=== PATIENT | female | born 2005 | race Caucasian/White ===

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

== ENCOUNTER 2023-07-30 16:37 | Outpatient (CLI) | payer BC, SELFPAY ==
[2023-07-30 16:45] VITALS: BP 153/77; PULSE 103; RESP 19; O2SAT 95
== END 2023-07-30 17:00 | disposition home or self-care (01) ==
LOC: INF 16:39
PROVIDERS: Visit Provider Physician Assistant
DX: R07.81 Pleurodynia (principal)
CPT/HCPCS: 96372

== ENCOUNTER 2024-03-07 15:10 | Outpatient (CLI) | payer BC, SELFPAY ==
[2024-03-07 15:32] VITALS: BMI 28.3
[2024-03-07 15:45] LABS: Basophils % 0.5 % (0.1-2.0); Eosinophils # 0.2 K/mm3 (0.0-0.4); Hematocrit 39.8 % (37.0-47.0); Lymphocytes # 0.4 K/mm3 (0.7-4.5); Lymphocytes % 10.6 % (10-50); Mean Corpuscular HGB Conc 32.7 g/dL (31.8-35.4); Mean Corpuscular Hemoglobin 30.1 pg (27.0-31.2); Mean Corpuscular Volume 92.1 fl (81-99); Mean Platelet Volume 7.4 fl (7.4-10.4); Monocytes # 0.3 K/mm3 (0.1-1.0); Monocytes % 6.6 % (1.7-9.3); Neutrophils # 3.2 K/mm3 (1.8-7.8); Neutrophils % 78.3 % (37.0-80.0); Platelet Count 319 K/mm3 (142-424); Red Blood Count 4.31 M/mm3 (4.20-5.40); Red Cell Distribution Width 14.1 % (11.5-17.5); White Blood Count 4.1 K/mm3 (4.5-13.0)
[2024-03-07 15:48] LABS: Urine Pregnancy, HCG Qual. Negative (Negative)
[2024-03-07] MEDS: cefTRIAXone 500MG VIAL 500 MG IM (15:50)
[2024-03-07 16:00] LABS: Albumin Level 4.3 g/dl (3.5-5.0); Albumin/Globulin Ratio 1.5 (1.1-1.8); Blood Urea Nitrogen 7 mg/dl (7-17); Chloride 104 mmol/L (98-107); Creatinine Clearance Estimated 120 mL/min (50-200); Estimated Glomerular Filt Rate 91 ml/min (>60); GFR (African American) 111 ML/MIN (>60); Globulin 2.8 g/dL (1.3-3.2); Potassium 3.9 mmoL/L (3.5-5.1); Sodium 140 mmol/L (136-145); Total Protein,Serum 7.1 g/dl (6.3-8.2)
[2024-03-07 16:01] LABS: Glucose 81 mg/dl (74-100)
[2024-03-07 16:02] LABS: Alanine Aminotransferase 24 U/L (12-78); Alkaline Phosphatase 67 U/L (38-126); Anion Gap 14.9 mEq/L (5-15); Aspartate Amino Transferase 33 U/L (14-36); Bilirubin,Total 0.4 mg/dl (0.2-1.3); Calcium 8.9 mg/dl (8.4-10.2); Carbon Dioxide 25 mmol/L (22.0-30.0)
--- NOTE | 2024-03-07 16:14 | XR_ITS ---
PROCEDURE INFORMATION: Exam: XR Abdomen Exam date and time: 03/07/2024 4:18 PM Age: 18 years old Clinical indication: Abdominal pain; Additional info: Lower abd pain; Back pain; Acute febrile illness TECHNIQUE: Imaging protocol: Radiologic exam of the abdomen. Views: Frontal supine view of the abdomen. 1 View. COMPARISON: CT ABDOMEN PELVIS WO CON 03/01/2020 9:15 PM FINDINGS: Gastrointestinal tract: Moderate colonic stool. No bowel dilation. Bones/joints: Unremarkable. IMPRESSION: No acute findings.
== END 2024-03-07 16:06 | disposition home or self-care (01) ==
LOC: INF 15:15
PROVIDERS: PCP Internal Medicine Adolescent Medicine; Visit Provider Nurse Practitioner Family
DX: R10.30 Lower abdominal pain, unspecified (principal); M54.9 Dorsalgia, unspecified; R50.9 Fever, unspecified; Z79.2 Long term (current) use of antibiotics
CPT/HCPCS: 36415; 74018; 80053; 81025; 85025; 87086; 96372; J0696

== ENCOUNTER 2025-07-04 09:09 | Outpatient (CLI) | payer BC, SELFPAY ==
--- OUTSIDE RECORDS SUMMARY | 2025-07-04 09:27 | XMS_ITS | Clinical Summary ---
Author Organization [facility] Address [address] [place] [address] Care Team Providers Care [employer] Dealer Name Role Phone Israel Bach MD Primary Care Provider + [phone] Allergies No known active allergies Medications PARoxetine (Paxil) 20 MG tablet 09/10/2023 Active norethindrone (Aygestin) 5 MG tabletIndication s:Dysfunctional uterine bleeding TAKE 1 TABLET BY MOUTH ONCE DAILY 90 tablet 3 05/04/2024 Active Active Problems Problem Noted Date Diagnosed Date Acute vaginitis 07/10/2023 Assessment & Plan (07/10/2023 11:30 AM EDT): - bacterial vaginosis on slides today. Discussed likely changes in vaginal PH from surgery - flagyl and diflucan RX sent - instructed to call if symptoms not improved in 2 weeks Elevated blood pressure read ing without diagnosis of hypertension 11/06/2022 Assessment & Plan (11/06/2022 9:35 AM EST): - normal BP in office today - log shows that she has had multiple elevated readings - discussed to stop control for 1 month. Continue log of blood pressure. Her mother is a nurse - discussed using a manual cuff or one besides a wrist cuff as it is not as accurate. - we discussed that we could try a lower dose of estrogen and we also discussed different progesterone only options to help manage heavy periods. - RTC 1 month to eval blood pressures Dysfunctional uterine bleeding 08/06/2022 Assessment & Plan (04/29/2023 4:42 PM EDT): -normal post-operative visit -discussed progesterone, aygestin, minipill, depo-provera, nexplanon, IUD - discussed R/B of each -interested in Aygestin - Rx sent -Explained this is a Progesterone only pill, not a contraceptive -RTC 3 months Assessment & Plan (12/08/2022 5:47 PM EDT): - hold OCPs until CT scan is complete - DUB labs today Assessment & Plan (08/06/2022 10:10 AM EST): - we discussed HPA immatury with anovulation is likely cause of heavy periods. We also discussed endocrine disorders or structural issues with uterus. No history or family history of bleeding disorders. - has not had recent lab work - HbA1c, TSH, and CBC today - discussed if anemic will start Iron BID - will try OCP with higher estrogen dose - Sprintec Rx sent - discussed possible ultrasound if periods do not improve - RTC 3 months for symptom evalulation Anxiety, generalized 05/23/2019 Resolved Problems Problem Noted Date Diagnosed Date Resolved Date Postoperative follow-up 04/29/202306/22 Pelvic and perineal pain 11/06/2022 Assessment & Plan (03/25/2023 10:35 AM EDT): - normal CT scan - has not improved with OCPs - consented for diagnostic laparoscopy, possible fulguration of endometriosis, hysteroscopy, dilation and curettage on 03/31/23 for heavy periods and pelvic pain - questions answered - RTC 4 weeks post-op visit Assessment & Plan (12/08/2022 5:48 PM EDT): - TVUS was ordered but WAS NOT performed. Unable to perform TVUS due to significant discomfort with exam - pelvic exam performed revealed normal vaginal anatomy - will order CT scan to eval structural abnormalities - we also discussed possible diagnosis of endometriosis and that only was to diagnose is with surgery. We did discuss that treatment is with management of hormones and that surgery is not needed to treat the condition. - continue to hold OCPs until CT scan is completed Assessment & Plan (11/06/2022 9:33 AM EST): - we discussed since cramping and pain with periods hasn't improved, that an ultrasound could be beneficial to see if there is a structural component to pain - we discussed that it will be transvaginal - RTC for US Immunizations Immunization Administration Dates Next Due DTaP 02/25/2008, 5,03/28/2004,01/08,2003 Hep A, ped/adol, 2 dose 07/06/2018,01/01/2018 Hep B, Adolescent or Pediatric 2003 Hib (PRP-OMP) 01/09/2004 Hib / Hep B 08/20/2004,2003 IPV 02/25/2008, 4,01/09/2004,10/26 Influenza, injectable, quadrivalent 07/06/2018 Influenza, injectable, quadr ivalent, preservative free 06/30/2019 MMR 02/25/2008,11/19/2004 Meningococcal B, Omv 09/10/2020 Meningococcal MCV4P 09/10/2020,04/17/2015 Pneumococcal Conjugate PCV 13 02/12/2005 Pneumococcal conjugate vacci ne, 10 valent 07/16/2004,03/28/2004 Tdap 04/17/2015 Varicella 04/17/2015,11/19/2004 Family History Medical History Relation Name Comments Conversions - Other Father Tobacco use Anxiety and depression Mother Conversions - Other Mother Nasal co ngestion Hypertension Mother Anxiety and depression Other 1 Anxiety and depression Other 2 Asthma Sibling Relation Name Status Comments Father Mother Other 1 Other 2 Sibling Social History Tobacco Use Types Packs/Day Years Used Date Smoking Tobacco: Never Passive Smoke Exposure: Yes Smokeless Tobacco: Never Tobacco Cessation:Counseling Given: Not Answered Comments:Secondhand exposure to electronic cigarette smoke Alcohol Use Standard Drinks/Week Comments Never 0 (1 standard drink = 0.6 oz pur e alcohol) PHQ-2 Answer Date Recorded Patient Health Questionnaire-2 Score 0 10/21/2023 PHQ-2A Answer Date Recorded Patient Health Questionnaire-2 Score 0 07/10/2023 Comments No Sex and Gender Information Value Date Recorded Sex Assigned at Not on file Legal Sex Female 8:23 PM EDT Gender Identity Not on file Sexual Orientation Not on file Last Filed Vital Signs Vital Sign Reading Time Taken Comments Blood Pressure 129/76 10/22/2023 12:48 PM EST Pulse 95 10/22/2023 12:48 PM EST Temperature 36.7 C (98.1 F) 10/22/2023 12:48 PM EST Respiratory Rate 16 10/22/2023 12:48 PM EST Oxygen Saturation 97% 10/22/2023 12:48 PM EST Inhaled Oxygen Concentration - - Weight 68.7 kg (151 lb 7.3 oz) 10/22/2023 12:48 PM EST Height 154.9 cm (5' 1 ) 10/22/2023 12:48 PM EST Body Mass Index 28.62 10/22/2023 12:48 PM EST Plan of Treatment Health Maintenance Due Date Last Done Comments [facility]-HIV Screening 2003 [facility]-/Child/Adol SDOH Screenings 2003 HPV Vaccines (1 - 3-dose series) 2018 [facility]- SDOH Screenings 2021 [facility]-Adult SDOH Screenings 2021 [facility]-Pap Smear 2024 [facility]-Depression Screening 10/21/2024 10/21/2023 [facility]-DTaP,Tdap,and Td Vaccines (7 - Td or Tdap) 04/17/2025 04/17/2015, 02/25/2008, 11/19/2004, Additional history exists [facility]-EERQB-32 Vaccine (3 - season) 2025 06/11/2021, 05/16/2021 [facility]-Influenza Vaccine (#1) 2025 06/30/2019, [facility]-Zoster Vaccines (1 of 2) 2053 04/17/2015, 11/19/2004 [facility]-HIB Vaccines Completed 08/20/2004, , 2003 [facility]-Hepatitis B Vaccines Completed 004, 2003, 2003 [facility]-Pneumococcal Vaccine: Pediatrics (0 to 5 Years) and At-Risk Patients (6 to 49 Years) Aged Out 02/12/2005, 02/12/2005 No longer eligibl e based on patient's age to complete this topic [facility]-IPV Vaccines Completed 02/25/2008, 04/2004, 01/09/2004, Additional history exists [facility]-Varicella Vaccines Completed 04/17/2015, 2004 [facility]-Hepatitis A Vaccines Completed 07/06/2018, 12/20 [facility]-Hepatitis C Screening Completed 09/23/2023 [facility]-Obesity Intervention Completed 024, 10/21/2023, 09/23/2023, Additional history exists [facility]-Rotavirus Vaccines Aged Out No lo nger eligible based on patient's age to complete this topic Procedures Procedure Name Priority Date/Time Associated Diagnosis Comments ACUTE HEPATITIS PANEL Routine 09/23/2023 3:12 PM EST Other chest pain Hypertension, unspecified type Elevated C-reactive protein (CRP) from Last 3 Months or Most Recently Relevant to Health Maintenance Results * Hepatitis panel, acute (09/23/2023 3:12 PM EST) Hepatitis B Surf Antigen Negative Negative 09/23/2023 6:31 PM EST [facility] Hepatitis C Antibody Negative Negative 09/23/2023 6:31 PM EST [facility] Hepatitis A Antibody IgM Negative Negative 09/23/2023 6:31 PM EST [facility] Hepatitis B Core Antibody IgM Negative Negative 09/23/2023 6:31 PM EST [facility] Blood Venous blood specimen / Unknown Venipuncture / Unknown 09/23/2023 3:12 PM EST 09/23/2023 3:13 PM EST us Seven Buitrago MD LAB BLOOD ORDERABLES Final Re sult [facility] [address] [place] [address] from Last 3 Months or Most Recently Relevant to Health Maintenance Insurance [facility] [address] [place] [id number] ANTHEM Care Teams [employer] Relationship Specialty Start Date End Date Israel Bach MD [address] [place] [id number] PCP - General 02/01/21
--- OUTSIDE RECORDS SUMMARY | 2025-07-04 09:27 | XMS_ITS | Patient Health Record ---
Author Organization [facility] [place] [facility] Address [address] [facility] [address] [place] [address] Care Team Providers Care Reeler Operator Name Role Phone Lourdes Wiggins Unavailable [phone] Allergies No Known Allergies Results Component Value Reference Range Flag Notes Dinora/Bacterial Vaginosis/ Trichomonas, JOSE ANTONIO (Aptima) Reviewed date:03/23/2025 03:05:41 PM Interpretation:Negative Performing Lab:[facility] AUREA CLIA ID [id number], [address], [address], [place] [address], Director - Hugo Akhtar MD Notes/Report: Bacterial Vaginosis Negative Negative The Aptima BV assay is a real time NAAT TMA assay developed for use on the automated Arch Cape system that detects and discriminates RNA markers from the Lactobacillus species group (L. gasseri, L. crispatus and L. jensenii), Gardnerella vaginalis, and Atopobium vaginae. The Aptima BV assay uses an algorithm for bacterial vaginosis based on detection of target organisms. Dinora species Negative Negative The CV Assay is a real time TMA assay developed for use on the automated Arch Cape system that detects following Dinora species organisms (C. albicans, C. tropicalis, C. parapsilosis, C. dubliniensis), but the assay does not differentiate among C spp. Dinora glabrata Negative Negative Trichomonas Negative Negative Pap w/reflex HPV/CTNG Reviewed date:03/23/2025 03:05:41 PM Interpretation:NILM HPV neg Performing Lab:[facility] - [facility]A CLIA ID [id number], [address], [address], [place] [address], Director - Hugo Akhtar MD Notes/Report: Any Nucleic Acid Amplification testing is performed on the PharmAssistant Arch Cape. Diagnosis: Negative for intraepithelial lesion or malignancy. AP results FINAL BISCUIT PACKER CYTOLOGY REPORT DIAGNOSIS: Negative for intraepithelial lesion or malignancy. Specimen Adequacy: Satisfactory for interpretation with endocervical/transform ation zone component present. Pertinent Clinical History/History of Surgery: Not provided Collection Technique: Not provided Results of Last Pap: Not provided LMP: NA Date of Last Pap: Not provided Screening note: This specimen has been analyzed by the Webtab Imaging System, an interactive computer system which assists the lab in screening of ThinPrep Pap Test slides. Following imaging, the slide was reviewed by a Property Portfolio Officer and/or Pathologist. Negative Educational Note: The pap screening test aids in the detection of premalignant and malignant states of the cervix. False positive and negative results may occur. It is not a diagnostic test. If abnormal cells are reported, follow-up based on current clinical guidelines and/or clinical consideration is recommended. Estella Mojica Property Portfolio Officer CPT Codes: 77610 ICD Codes: Z01.419 Specimen Source: Cervical/Endocervical Specimen Type: ThinPrep Other Gynecological Patient Information: Not provided Recommendation: Follow-up based on current clinical guidelines and/or clinical consideration. Chlamydia Trachomatis Negative Negative Neisseria Gonorrhoeae Negative Negative Mycoplasma/Ureaplasma Panel, PCR (Aptima) Reviewed date:03/30/2025 09:05:08 AM Interpretation:Negative Performing Lab: Notes/Report: [facility] Testing performed at: [BN] [address], [address], , Plaster Mixer: Alyssa Portillo MD Test(s) 046856-Mkxfokeeup hominis JOSE ANTONIO; 668469- Ureaplasma spp JOSE ANTONIO was developed and its performance characteristics determined by [facility]. It has not been cleared or approved by the Food and Drug Administration. Mycoplasma genitalium JOSE ANTONIO Negative Negative N Mycoplasma hominis JOSE ANTONIO Negative Negative N Ureaplasma spp JOSE ANTONIO Negative Negative N Reason For Referral No Information Medications Medication SIG (Take, Route, Frequency, Duration) Notes Start Date End Date Status Norethindrone Active Social History Social History Sexual History: Social Info Question Answer Notes Sexual History Had sex in the past 12 months (vaginal, oral, or anal)? Yes Drugs/Alcohol: Social Info Question Answer Notes Drugs Have you used drugs other than those for medical reasons in the past 12 months? No Alcohol Screen Did you have a drink containing alcohol in the past year? Yes Points 0 Interpretation Negative Tobacco Use: Social Info Question Answer Notes Tobacco Use/Smoking Are you a former smoker Tobacco use other than smoking: Are you an other tobac co user? No Problems Problem Type SNOMED Code ICD Code Onset Dates Problem Status W/U Status Risk Notes Problem Irregular menstruation (36754941) Irregular menstruation, unspecified (N92.6) Active confirmed Vital Signs Blood pressure diastolic 68 mm Hg 03/21/2025 Height 61 in 03/21/2025 Blood pressure systolic 114 mm Hg 03/21/2025 Weight 150.0 lbs 03/21/2025 BMI 28.34 kg/m2 03/21/2025 Encounters Encounter Location Date Provider Diagnosis [facility] [address] [place] [address] 04/03/2025 Lourdes Rosalie [facility] [address] [place] [address] 06/07/2025 Lourdes Wiggins [facility] [address] [facility] [facility] [address] [place] [address] 03/21/2025 Lourdes Wiggins Nail Cutter exam without abnormal findings Z01.419 ; Acute vaginitis N76.0 ; Irregular menstruation, unspecified N92.6 and BISCUIT PACKER exam without Abnormal Findings Z01.419 Assessments Encounter Date Diagnosis (ICD Code) Assessment Notes Treatment Notes Treatment Clinical Notes Section Notes 03/21/2025 Nail Cutter exam without abnormal findings (ICD-10 - Z01.419) Annual Well Woman's Examination -Physical exam performed and no abnormalities noted. -Pap smear collected. Will follow up with results and proceed per ASCCP guidelines. Discomfort with exam. Advised use peds speculums in future for testing -Contraception: Norethindrone -Encouraged a healthy lifestyle for our patients. Avoid the use of tobacco and drugs. Limit the use of alcohol. Take a multivitamin daily that contains 400mcg folic acid, 400-500mg calcium, and 800 units vitamin D. Exercise regularly (4 or more times per week for 30 mins. or more each time), eat a healthy diet, and maintain a healthy weight. Perform monthly breast self exams -Advised to continue care with PCP -Follow up in one year for annual exam or prior if needed 03/21/2025 Acute vaginitis (ICD-10 - N76.0) - Persistent abnormal vaginal discharge with foul odor and recurrence after standard treatment. - History of BV diagnosed months ago, treated with metronidazole and antifungal prophylaxis. - Symptoms resolve during treatment but recur immediately after. No urinary symptoms or lesions reported. - Performed assessment for vaginal infections to evaluate for recurrence or resistant organisms. - Will contact with results and tx as indicated 03/21/2025 Irregular menstruation, unspecified (ICD-10 - N92.6) - Recent onset of irregular periods, breakthrough bleeding, and clots after two years of amenorrhea. - History of endometrial hyperplasia and prior D&C. Will request records - Cramping episodes of variable severity over the past three months. Continuous hormonal therapy in use, skipping inactive pills. - Discussed hormonal management strategies, including periodic withdrawal to reduce breakthrough bleeding. - Recommended withdraw bleeding every 3 months to prevent random breakthrough 03/21/2025 BISCUIT PACKER exam without Abnormal Findings (ICD-10 - Z01.419) Routine gynecological screening performed, including Pap smear and breast exam. No prior Pap smear. No history of sexual activity. Patient expressed hesitancy but agreed to proceed. - Performed Pap smear for cervical cancer screening. - Performed breast exam. Plan Of Treatment Next Appt Details Provider Name:Lourdes Rosalie , 03/26/2026 01:30:00 PM, [address], [facility] [address], [place], [address], Insurance Providers Payer Name Payer Address Payer Phone Subscriber Number Group Number Insured Name Patient Relationship to Insured Coverage Start Date Coverage End Date Quinten WOODALL [address] [place] [address] [id number] Virginie Mason Self - patient is the insured Medical (General) History Medical History History ICD Code Endometrial Hyperplasia BV POTS Surgical History Surgery Date(Month/Year) Hysteroscopy D&C Laparoscope
--- OUTSIDE RECORDS SUMMARY | 2025-07-04 09:27 | XMS_ITS | Encounter Summary ---
Author Organization [facility] Address [address] [place] [address] Care Team Providers Care Apple Picker Name Role Phone Israel Bach MD Primary Care Provider [phone] Reason for Referral * Consultation (Routine) - Closed Specialty Diagnoses / Procedures Referred By Rj grady Referred To Contact Rheumatology Diagnoses Other chest pain Jeannette Martinez APRN [address] [id number] Phone: tel: fax: Referral ID Status Reason Start Date Expiration Date V isits Requested Visits Authorized [id number] Closed Specialty Services Required 08/21/2023 02/19/2025 1 1 Encounter Details Date Type Department Care Team ([facility] st Contact Info) Description 08/21/2023 Community [facility] [address] [place] [address] Jeannette Martinez APRN [address] [place] [address] Other chest pain (Primary Dx) Social History Tobacco Use Types Packs/Day Years Used Date Smoking Tobacco: Never Passive Smoke Exposure: Yes Smokeless Tobacco: Never Comments:Secondhand exposure to electronic cigarette smoke Alcohol Use Standard Drinks/Week Comments Never 0 (1 standard drink = 0.6 oz pur e alcohol) PHQ-2 Answer Date Recorded Patient Health Questionnaire-2 Score 0 07/10/2023 PHQ-2A Answer Date Recorded Patient Health Questionnaire-2 Score 0 07/10/2023 Comments No Sex and Gender Information Value Date Recorded Sex Assigned at Not on file Legal Sex Female 8:23 PM EDT Gender Identity Not on file Sexual Orientation Not on file documented as of this encounter Plan of Treatment Scheduled Referrals Name Type Priority Associated Diagnoses Order Schedule Ambulatory referral to Rheumatology Outpatient Referral Routine Other chest pain Expected: 08/21/2023 (Approximate), Expires: 02/19/2025 documented as of this encounter Visit Diagnoses Diagnosis Other chest pain- Primary documented in this encounter Additional Health Concerns Assessment Noted Time A fall risk assessment has been complete d for the patient 07/10/2023 10:05 AM EDT A Body Mass Index follow-up plan has been documented for the patient 07/10/2023 11:30 AM EDT documented as of this encounter Care Teams Apple Picker Relationship Specialty Start Date End Date Israel Bach MD [address] [place] [address] PCP - General 02/01/21 documented as of this encounter
--- OUTSIDE RECORDS SUMMARY | 2025-07-04 09:27 | XMS_ITS | Encounter Summary ---
Author Organization Healthcare Address [address] [place] [address] Care Team Providers Care Bar Catcher Name Role Phone Israel Bach MD Primary Care Provider [phone] Encounter Details Date Type Department Care Team ([facility] st Contact Info) Description 12/17/2022 Outside Procedure External Location [address] [place] [address] Norma Donahue MD [address] [place] [address] Social History Tobacco Use Types Packs/Day Years Used Date Smoking Tobacco: Never Passive Smoke Exposure: Yes Smokeless Tobacco: Never Comments:Secondhand exposure to electronic cigarette smoke Alcohol Use Standard Drinks/Week Comments Never 0 (1 standard drink = 0.6 oz pur e alcohol) PHQ-2 Answer Date Recorded Patient Health Questionnaire-2 Score 0 12/08/2022 Comments No Sex and Gender Information Value Date Recorded Sex Assigned at Not on file Legal Sex Female 8:23 PM EDT Gender Identity Not on file Sexual Orientation Not on file COVID-19 Exposure Response Date Recorded In the last 10 days, have yo u been in contact with someone who was confirmed or suspected to have Coronavirus/COVID-19? No / Unsure 12/16/2022 7:33 AM EDT documented as of this encounter Plan of Treatment Not on file documented as of this encounter Procedures Procedure Name Priority Date/Time Associated Diagnosis Comments CT ABDOMEN PELVIS W IV CONTRAST 12/17/2022 1:10 PM EDT documented in this encounter Results * CT Abdomen Pelvis w IV Contrast (12/17/2022 1:10 PM EDT) Anatomical Region Laterality Modality Abdomen, Pelvis Computed Tomogra phy 12/17/2022 1:10 PM EDT Narrative 12/17/2022 3:03 PM EDT [address] [address] Name: HILARY MASON Exam Date: 12/17/2022 : 2005 Age 17 Gender: F Physician: NORMA DONAHUE Facility: [facility] Facility HSV: Outpatient Exam: CT ABD PEL W/ (IV ORAL) CT ABDOMEN AND PELVIS WITH CONTRAST HISTORY: Acute pelvic and perineal pain. PROCEDURE: The patient was injected with 100 ml of Omnipaque-300. Oral contrast was also administered. Axial images were obtained from the lung bases to the pubic symphysis by computed tomography. This study was performed with techniques to keep radiation doses as low as reasonably achievable, (ALARA). FINDINGS: ABDOMEN: The lung bases are clear. The heart is normal in size. The liver is normal. Gallbladder is unremarkable. The spleen is unremarkable. No adrenal mass is present. The pancreas is normal. The kidneys are normal. The aorta is normal in caliber. There is no free fluid or adenopathy. PELVIS: The appendix is normal. Uterus is retroverted and has a normal appearance. Ovaries are unremarkable. The urinary bladder is normal. There is no significant free fluid or adenopathy. IMPRESSION: No evidence of acute intra-abdominal process. Films reviewed , interpreted and dictated by Dr. Santana. Transcribed by Luc Lua PA-C. Dictated By: OTILIA SANTANA Transcribed By: Keith Santana Transcribed On: 12/17/2022 2:51 PM Electronically signed by: OTILIA SANTANA 12/17/2022 Thank you for referring HILARY MASON to [facility]. Legally authenticated by MAX TERRAZAS 2022-12-17 14:51:11 Procedure Note Provider, [facility] - 12/17/2022 [facility] [address] [place] [address] Name: HILARY MASON Exam Date: 12/17/2022 : 2005 Age 17 Gender: F Physician: NORMA DONAHUE Facility: [facility] Facility HSV: Outpatient Exam: CT ABD PEL W/ (IV ORAL) CT ABDOMEN AND PELVIS WITH CONTRAST HISTORY: Acute pelvic and perineal pain. PROCEDURE: The patient was injected with 100 ml of Omnipaque-300. Oral contrast was also administered. Axial images were obtained from the lungbases to the pubic symphysis by computed tomography. This study was performedwith techniques to keep radiation doses as low as reasonably achievable,(ALARA). FINDINGS: ABDOMEN: The lung bases are clear. The heart is normal in size. The liveris normal. Gallbladder is unremarkable. The spleen is unremarkable. Noadrenal mass is present. The pancreas is normal. The kidneys are normal. The aortais normal in caliber. There is no free fluid or adenopathy. PELVIS: The appendix is normal. Uterus is retroverted and has a normal appearance. Ovaries are unremarkable. The urinary bladder is normal. Thereis no significant free fluid or adenopathy. IMPRESSION: No evidence of acute intra-abdominal process. Films reviewed , interpreted and dictated by Dr. Santana. Transcribed by Luc Lau PA-C. Dictated By: OTILIA SANTANA Transcribed By: Keith Santana Transcribed On: 12/17/2022 2:51 PM Electronically signed by: OTILIA SANTANA 12/17/2022 Thank you for referring HILARY MASON to [facility]. Legally authenticated by MAX TERRAZAS 2022-12-17 14:51:11 Norma Donahue MD IMG CT PROCEDURES Final Result documented in this encounter Visit Diagnoses Not on filedocumented in this encounter Additional Health Concerns Assessment Noted Time A fall risk assessment has been complete d for the patient 12/08/2022 1:18 PM EDT A Body Mass Index follow-up plan has been documented for the patient 12/08/2022 5:48 PM EDT documented as of this encounter Care Teams Bar Catcher Relationship Specialty Start Date End Date Israel Bach MD [address] [place] [address] PCP - General 02/01/21 documented as of this encounter
[2025-07-04 09:57] LABS: Hematocrit 42.1 % (37.0-47.0); Hemoglobin 13.6 g/dL (12.2-16.2); Immature Granulocytes % 0.4 %; Mean Corpuscular HGB Conc 32.3 g/dL (31.8-35.4); Mean Corpuscular Hemoglobin 30.6 pg (27.0-31.2); Mean Corpuscular Volume 94.6 fl (81-99); Nucleated Red Blood Cells % 0 %; Platelet Count 365 K/mm3 (142-424); Red Blood Count 4.45 M/mm3 (4.20-5.40); Red Cell Distribution Width-SD 44.4 fL; White Blood Count 8.1 K/mm3 (4.8-10.8)
[2025-07-04 10:28] LABS: Alanine Aminotransferase 21 U/L (12-78); Albumin Level 3.9 g/dl (3.5-5.0); Albumin/Globulin Ratio 1.8 (1.1-1.8); Alkaline Phosphatase 92 U/L (38-126); Anion Gap 14.4 mEq/L (5-15); Aspartate Amino Transferase 25 U/L (14-36); Bilirubin,Total 0.8 mg/dl (0.2-1.3); Blood Urea Nitrogen 7 mg/dl (7-17); Calcium 9.4 mg/dl (8.4-10.2); Carbon Dioxide 26 mmol/L (22.0-30.0); Chloride 104 mmol/L (98-107); Creatinine,Serum 0.70 mg/dl (0.52-1.04); Estimated Glomerular Filt Rate 106 ml/min (>60); GFR (African American) 128 ML/MIN (>60); Globulin 2.2 g/dL (1.3-3.2); Glucose 91 mg/dl (74-100); Potassium 4.4 mmoL/L (3.5-5.1); Sodium 140 mmol/L (136-145); Total Protein,Serum 6.1 g/dl (6.3-8.2)
[2025-07-04 10:45] LABS: 25-OH Vitamin D, Total 27.9 ng/mL (30-100)
[2025-07-04 10:47] LABS: Free Thyroxine Index 2.6 ug/dL (5.93-13.13); T4 (Thyroxine) 7.8 ug/dl (5.53-11.0); Triiodothryronine (T3) Uptake 33 % (23.5-40.5)
[2025-07-04 10:59] LABS: Thyroid Stimulating Hormone 1.83 uIU/mL (0.465-4.68)
[2025-07-04 11:01] LABS: Thyroid Stimulating Hormone 1.82 uIU/mL (0.465-4.68)
[2025-07-04 11:18] LABS: Vitamin B12 569 pg/mL (239-931)
[2025-07-04 11:37] LABS: Folate 5.35 ng/mL
== END 2025-07-04 23:59 | disposition home or self-care (01) ==
LOC: LAB 09:10
PROVIDERS: PCP Internal Medicine Adolescent Medicine; Visit Provider Internal Medicine Adolescent Medicine
DX: G90.A Postural orthostatic tachycardia syndrome [POTS] (principal); E55.9 Vitamin D deficiency, unspecified; E53.8 Deficiency of other specified B group vitamins; R11.0 Nausea
CPT/HCPCS: 36415; 80053; 82306; 82607; 82746; 84436; 84443; 84479; 85025